=== PATIENT | female | born 1975 | race African-American/Black ===

== ENCOUNTER 2022-10-01 00:12 | Emergency (ER) | payer OTHER ==
[~2022-10-01] VITALS: Ht 170.2 cm; Wt 62.0 kg
[~2022-10-01 00:12] MED LIST: INSULIN
[2022-10-01 00:22] VITALS: O2SAT 97
[2022-10-01 01:06] LABS: BASOPHILS % 0.6 % (0.0-2.0); EOSINOPHILS % 4.1 % (0.0-5.0); HEMATOCRIT. 37.4 % (36.0-48.0); HEMOGLOBIN. 12.5 g/dL (12.0-16.0); LYMPHOCYTES % 48.2 % (20.0-50.0); MEAN CORPUSCULAR HEMOGLOBIN 27.8 pg (28.0-32.0); MEAN CORPUSCULAR VOLUME 83.1 fL (81.0-99.0); MEAN PLATELET VOLUME 8.3 fl (7.4-10.4); MONOCYTES % 7.2 % (2.0-8.0); NEUTROPHILS % 39.9 % (40.0-76.0); PLATELET 262 x1000/uL (130-400); RED CELL DISTRIBUTION WIDTH 15.6 % (11.6-14.6)
[2022-10-01 01:14] LABS: CHLORIDE 106 mEq/L (98-107)
[2022-10-01] MEDS ORDERED: ONDANSETRON 4MG ODT PO NR (02:15)
[2022-10-01 02:19] VITALS: TEMP 98
[2022-10-01] MEDS ORDERED: SODIUM CHLORIDE 0.9% 1,000 ML IV NR (03:15)
[2022-10-01] MEDS ORDERED: METO5TAB86 MT (04:41)
[2022-10-01 04:46] VITALS: BP 139/90; PULSE 94; RESP 16
[2022-10-01] MEDS ORDERED: ONDANSETRON 4MG ODT PO ONE (05:00)
== END 2022-10-01 05:37 | disposition home or self-care (01) ==
LOC: ER 00:29
DX: K21.9 Gastro-esophageal reflux disease without esophagitis (principal); E11.9 Type 2 diabetes mellitus without complications
CPT/HCPCS: 99285; 96360; 71045; 80053; 83690; 85025; 84484; 36415; 93005; Q0162

== ENCOUNTER 2023-10-26 21:50 | Emergency (ER) | payer OTHER ==
[~2023-10-26] VITALS: Ht 172.7 cm; Wt 68.0 kg
[~2023-10-26 21:50] MED LIST changes: +METO5TAB86 MT
[2023-10-26 21:52] VITALS: O2SAT 99
[2023-10-26] MEDS: SODIUM CHLORIDE 0.9% 1,000 ML IV ONE (23:25)
[2023-10-26 23:59] LABS: BASOPHILS % 1.4 % (0.0-2.0); DIFFERENTIAL COMMENT 0; HEMATOCRIT. 33.7 % (36.0-48.0); HEMOGLOBIN. 10.9 g/dL (12.0-16.0); LYMPHOCYTES % 23.1 % (20.0-50.0); MEAN CORPUSCULAR HEMOGLOBIN 24.5 pg (28.0-32.0); MEAN CORPUSCULAR HGB CONC 32.3 g/dL (31.0-37.0); MEAN CORPUSCULAR VOLUME 75.7 fL (81.0-99.0); MONOCYTES % 8.9 % (2.0-8.0); NEUTROPHILS % 65.6 % (40.0-76.0); PLATELET 224 x1000/uL (130-400); RED BLOOD CELL COUNT 4.44 mill/uL (4.2-5.4); RED CELL DISTRIBUTION WIDTH 17.7 % (11.6-14.6)
[2023-10-27 00:15] LABS: INR 0.9; PARTIAL THROMBOPLASTIN TIME 21.8 sec (23.4-31.0); PROTHROMBIN TIME 10.3 sec (9.6-11.0)
[2023-10-27 00:15] LABS: BG BASE EXCESS -1.8 mmol/L (-2.0-2.0); BG CARBOXYHEMOGLOBIN 0.9 % (0.5-1.5); BG DEOXYHEMOGLOBIN 6.5 % (0.0-5.0); BG HCO3 ACT 21.3 mmol/L (22.0-26.0); BG METHEMOGLOBIN 0.3 % (0.0-1.5); BG OXYGEN SATURATION 93.4 % (92.0-98.5); BG OXYHEMOGLOBIN 92.3 % (94.0-97.0); BG PCO2 31.2 mmHg (35.0-45.0); BG PH 7.452 (7.350-7.450); BG SAMPLE SITE LEFT BRACHIAL; BG TOTAL HEMOGLOBIN 12.2 g/dL (12.0-18.0); BG VENT MODE ROOM AIR
[2023-10-27 00:18] LABS: CHLORIDE 104 mEq/L (98-107); POTASSIUM 3.8 mEq/L (3.5-5.1); SODIUM 137 mEq/L (136-145)
[2023-10-27 00:19] LABS: CARBON DIOXIDE 24 mEq/L (21-32)
[2023-10-27 00:20] LABS: CALCIUM 9.8 mg/dL (8.7-10.4)
[2023-10-27 00:24] LABS: CREATININE 0.9 mg/dL (0.6-1.0)
[2023-10-27 00:25] LABS: ETHANOL BLOOD < 10 mg/dL (<10); GLUCOSE 379 mg/dL (70-105); UREA NITROGEN BLOOD 5 mg/dL (9-23)
[2023-10-27 00:27] LABS: LACTIC ACID 2.3 mmol/L (0.4-2.0)
[2023-10-27 01:17] LABS: TROPONIN I HIGH SENSITIVITY < 4 ng/L (3.0-34)
[2023-10-27] MEDS ORDERED: SODIUM CHLORIDE 0.9% 1,000 ML IV NR (02:00)
[2023-10-27] MEDS: INSULIN REGULAR (HUMULIN R) 1000UNITS/10ML VIAL SUBCUT NR (02:11)
[2023-10-27 02:33] LABS: TROPONIN I HIGH SENSITIVITY < 4 ng/L (3.0-34)
[2023-10-27] MEDS: ASPIRIN 325MG EC TABLET PO ONE (02:40)
[2023-10-27] MEDS: MORPHINE SULFATE 2 MG/ML INJ (NOT FOR IM USE) IV NR (03:31)
[2023-10-27 04:50] VITALS: BP 146/83; PULSE 107; RESP 13; TEMP 98.3
== END 2023-10-27 05:55 | disposition short-term general hospital (02) ==
LOC: ER 21:50
DX: R07.89 Other chest pain (principal); E11.65 Type 2 diabetes mellitus with hyperglycemia
CPT/HCPCS: 80048; 80320; 82962 ×2; 83880; 83605 ×2; 85025; 85379; 85610; 85730; 84484 ×2; 36415 ×2; 71045; 82805; 82375; 93005; 96361; 99285; 36600; 87040; 96372; 96374; J7030; J1815; J2270; G0480